=== PATIENT | female | born 1955 | race Caucasian/White ===

== ENCOUNTER 2019-07-31 15:53 | Emergency (ER) | payer BC, OTHER ==
--- OUTSIDE RECORDS SUMMARY | 2019-07-31 16:04 | XMS REPORT | Continuity of Care Document ---
:1955 External Reference #:[id number] Author Name Rivera Mccloud MD Address [address] [place] [address] Care Team Providers Name Role Phone Rivera Mccloud MD - Family Medicine Care Team Information Chief Underwriter [phone] Checo Hughes DPM - Overhead Line Worker Care Team Information Chief Underwriter [phone] [facility] Care Team Information Chief Underwriter Problems Active Problems Provider Date Benign essential hypertension Veronica Turcios MD Onset: 05/03/2006 Pure hypercholesterolemia Veronica Turcios MD Onset: 05/03/2006 Discoid lupus erythematosus of eyelid Rivera Mccloud MD Onset: 2011 Essential hypertension Rivera Mccloud MD Onset: 04/03/2015 Chest pain Mark Hinson MD Onset: 12/29/2017 Difficulty breathing Mark Hinson MD Onset: 12/29/2017 FH: Myocardial infarct in 1st degree male Mark Hinson MD Onset: 2017 relative <55 years Obesity Mark Hinson MD Onset: 12/29/2017 Body mass index 30+ - obesity Mark Hinson MD Onset: 12/29/2017 Aortic valve disorder Mark Hinson MD Onset: 02/09/2018 Aneurysm of thoracic aorta Mark Hinson MD Onset: 02/09/2018 Mitral valve disorder Mark Hinson MD Onset: 02/09/2018 Tricuspid valve disorder, non-rheumatic Mark Hinson MD Onset: 02/09/2018 Social History Type Date Description Comments Sex Unknown ETOH Use Rarely consumes alcohol Recreational Drug Use Denies Drug Use Tobacco Use Reviewed: 08/01/18 Patient has never smoked Smoking Status Reviewed: 02/21/19 Patient has never smoked Exercise Type/Frequency Does not exercise Allergies, Adverse Reactions, Alerts Description No Known Drug Allergies Medications Active Medications SIG Qnty Indications Ordering Date Provider Valacyclovir HCL 1 tablets by mouth 180tabs Nanava, 500mg two times daily Rivera Patel MD 9 Tablets Solifenacin Succinate take 1 tablet daily 90tabs Nanavati, 10mg Rivera Patel MD 9 Tablets Shingrix 0.[address] [facility], 50mcg/0.5ML intramuscular now Rivera Patel MD 8 Suspension Rec and 6 month later Lisinopril Take 1 Tablet Daily 90tabs I10 Nanavati, 5mg Tablets Rivera Patel MD 7 Zolpidem Tartrate 1 tab by mouth at 30tabs G47.00 Nanavati, 5mg Tablets bedtime Rivera Patel MD 6 Calcium 600 + D One PO qd OTC Nanava, Rivera Patel MD 2 [id number] Tablets Hydroxychloroquine One Tab By Mouth 180tabs [facility], Sulfate Twice A Day Rivera Patel MD 2 200mg Tablets Vitamin D-400 1 by mouth every Unknown 400Unit Tablets day 0 Vitamin E 1 by mouth every Unknown 400Unit Capsules day 0 Multivitamins 1 by mouth every Unknown Capsules day 0 Medications Administered in Office Medication SIG Qnty Indications Ordering Provider Date B-12 Injection Rivera Mccloud MD 10/16/2015 Injection B-12 Injection Location V1 Nurse 2 06/01/2015 Injection B-12 Injection Location V1 Nurse 2 05/04/2015 Injection B-12 Injection Rivera Mccloud MD 04/03/2015 Injection B-12 Injection Location V1 Nurse 2 03/02/2015 Injection B-12 Injection Rivera Mccloud MD 12/25/2014 Injection B-12 Injection Location V1 Nurse 2 11/27/2014 Injection B-12 Injection Location V1 Nurse 2 10/27/2014 Injection B-12 Injection Rivera Mccloud MD 09/25/2014 Injection B-12 Injection Location V1 Nurse 2 08/22/2014 Injection B-12 Injection Location V1 Nurse 2 07/24/2014 Injection B-12 Injection Rivera Mccloud MD 06/27/2014 Injection B-12 Injection Location V1 Nurse 2 05/26/2014 Injection B-12 Injection Location V1 Nurse 2 04/25/2014 Injection Immunizations CPT Code Status Date Vaccine Lot # [id number] Given 04/01/2019 Fluzone Highdose Age 65 And Over Preservative & Antibiotic Free 18730 Given 02/14/2019 Shingrix (Shingles) Zoster Vaccine HZV, Recombinant, Subunit, Adj 89497 Given 03/14/2018 Influenza Virus Vaccine,Quadrivalent,Split,Preserv Free, 0.5mL,Im [id number] Given 03/23/2017 Flu Vaccine NOS 38691 Given 03/09/2017 Influenza Virus Vaccine,Quadrivalent,Split,Preserv [id number] Free, 0.5mL,Im 60866 Given 04/18/2016 Influenza Virus Vaccine,Quadrivalent,Split,Preserv Free, 0.5mL,Im 07289 Given 03/02/2015 Influenza Virus Vaccine,Quadrivalent,Split,Preserv [id number] Free, 0.5mL,Im 97874 Given 04/25/2014 Zoster (Zostavax) [id number] 19876 Given 03/26/2014 Influenza Virus Vaccine,Quadrivalent,Split,Preserv [id number] Free, 0.5mL,Im Q2038 Given 03/06/2012 Fluzone Trivalent Immunization Q2037 Given 03/06/2012 Fluvirin Immunization [id number] 85464 Given 03/06/2012 Tdap (Adacel) Ages 7 And Above Only [id number] Vital Signs Date Vital Result Comment 06/10/2019 8:12am Body Temperature 97.1 F Weight 183.00 lb Heart Rate 86 /min BP Systolic 134 mmHg BP Diastolic 84 mmHg Respiratory Rate 16 /min Height 62 inches 5'2" O2 % BldC Oximetry 94 % BMI (Body Mass Index) 33.5 kg/m2 02/21/2019 8:52am Weight 186.00 lb Heart Rate 68 /min regular BP Systolic 126 mmHg BP Diastolic 78 mmHg Height 62 inches 5'2" BMI (Body Mass Index) 34.0 kg/m2 Results Test Acquired Date Facility Test Result H/L Range Note CBC with Auto Diff-fcmg 06/10/2019 [facility] 6.1 K/uL 4.1-11.0 1, 2 RBC 4.46 M/uL 4.00-5.40 3 Hemoglobin 13.9 gm/dL 12.0-16.0 4 Hematocrit 41.1 % 36.0-47.0 5 MCV 92.2 fL 80.0-95.0 6 MCH 31.1 pg 27.0-32.0 7 MCHC 33.8 g/dL 32.0-36.0 8 RDW 13.0 % 10.5-14.5 9 PLT Count 249 K/ul 150-400 10 MPV 8.2 FL 7.1-10.7 Neutrophil 67.5 % 35.0-75.0 11 Lymphocyte 20.5 % 16.0-52.0 12 Monocyte 9.2 % High 0.0-8.0 13 Eosinophil 2.2 % 0.0-5.0 Basophil 0.6 % 0.0-4.0 Abs Neutrophils 4.1 K/uL 1.8-7.7 14 Abs Lymphocytes 1.2 K/uL 1.2-4.8 15 Abs Monocytes 0.6 K/uL 0.0-0.8 16 Abs Eosinophils 0.1 K/uL 0.0-0.5 17 Abs Basophils 0.0 K/uL 0.0-0.2 18 Comprehensive Met Panel-[facility] 06/10/2019 [facility] Sodium 141 mmol/L 135- 146 19 Potassium 4.2 mmol/L 3.5-5.2 Chloride# 102 mmol/L 97-110 20 Carbon Dioxide 30 mmol/L 24-34 Calcium 9.6 mg/dL 8.5-10.5 21 Glucose 90 mg/dL 70-105 BUN 15 mg/dL 6-26 Creatinine 0.7 mg/dL 0.5-1.4 Total Protein 6.7 g/dL 6.0-8.0 Albumin 4.6 g/dL 3.6-4.9 Globulin 2.1 g/dL 2.0-3.5 A/G Ratio 2.2 Ratio 1.0-2.2 Total Bilirubin 0.7 mg/dL 0.1-1.3 Alkaline Phosphatase 84 U/L 24-140 Alt 15 U/L 3-42 Ast 17 U/L 8-42 Anion Gap 9 mmol/L 5-15 22 Female Egfr 91 >60 23 Male Egfr 100 >60 24 Lipid 06/10/2019 [facility] Cholesterol 186 mg/dL 50-199 Triglycerides 125 mg/dL 30-200 HDL 52 mg/dL 35-85 25 Chol/ HDL Ratio 3.6 ratio Low 3.7-5.6 VLDL 25 mg/dL 2-29 LDL (Calc) 109 mg/dL High 20-99 26 CBC with Auto Diff-fcmg 02/04/2019 [facility] WBC 5.8 K/uL 4.1-11.0 27 RBC 4.49 M/uL 4.00-5.40 Hemoglobin 13.8 gm/dL 12.0-16.0 Hematocrit 40.7 % 36.0-47.0 MCV 90.5 fL 80.0-97.0 MCH 30.8 pg 27.0-32.0 MCHC 34.0 g/dL 32.0-36.0 RDW 13.0 % 11.5-14.5 PLT Count 242 K/ul 140-400 MPV 8.5 FL 7.1-10.7 Neutrophil 68.0 % 35.0-75.0 Lymphocyte 20.2 % 16.0-52.0 Monocyte 9.5 % 2.0-10.0 Eosinophil 1.6 % 0.0-5.0 Basophil 0.7 % 0.0-4.0 Abs Neutrophils 3.9 K/uL 2.1-8.0 Abs Lymphocytes 1.2 K/uL 0.8-5.5 Abs Monocytes 0.6 K/uL 0.1-1.0 Abs Eosinophils 0.1 K/uL 0.0-0.5 Abs Basophils 0.0 K/uL 0.0-0.3 Comprehensive Met Panel-[facility] 02/04/2019 [facility] Sodium 143 mmol/L 135- 146 28 Potassium 4.3 mmol/L 3.5-5.2 Chloride# 106 mmol/L 97-110 29 Carbon Dioxide 25 mmol/L 24-34 Calcium 9.5 mg/dL 8.5-10.5 30 Glucose 84 mg/dL 70-105 BUN 13 mg/dL 6-26 Creatinine 0.7 mg/dL 0.5-1.4 Total Protein 6.7 g/dL 6.0-8.0 Albumin 4.2 g/dL 3.6-4.9 Globulin 2.5 g/dL 2.0-3.5 A/G Ratio 1.7 Ratio 1.0-2.2 Total Bilirubin 0.8 mg/dL 0.1-1.3 Alkaline Phosphatase 78 U/L 24-140 Alt 16 U/L 3-42 Ast 16 U/L 8-42 Anion Gap 12 mmol/L 5-15 31 Female Egfr 93 >60 32 Male Egfr 102 >60 33 Lipid 02/04/2019 [facility] Cholesterol 162 mg/dL 50-199 Triglycerides 105 mg/dL 30-200 HDL 47 mg/dL 35-85 34 Chol/ HDL Ratio 3.4 ratio Low 3.7-5.6 VLDL 21 mg/dL 2-29 LDL (Calc) 94 mg/dL 20-99 35 Laboratory test finding 02/04/2019 [facility] Vitamin D 25 Hydroxy 40 ng/mL 30-100 36 Vitamin B12 548 pg/mL 180-914 TSH 1.43 uIU/mL 0.35-4.94 1 This sample is drawn by: tk 2 Updated Reference Range 04/2019 3 Updated Reference Range 04/2019 4 Updated Reference Range 04/2019 5 Updated Reference Range 04/2019 6 Updated Reference Range 04/2019 7 Updated Reference Range 04/2019 8 Updated Reference range 04/2019 9 Updated Reference range 04/2019 10 Updated Reference Range 04/2019 11 Updated Reference Range 04/2019 12 Updated Reference Range 04/2019 13 Updated Reference Range 04/2019 14 Updated Reference Range 04/2019 15 Updated Reference Range 04/2019 16 Updated Reference Range 04/2019 17 Updated Reference Range 04/2019 18 Updated Reference Range 04/2019 19 Updated reference range on new analyzer 20 Updated reference range on new analyzer 21 Updated reference range 10-10-2018 22 Updated Reference Range 23 Concerning GFR Guidelines for Americans: Normal function or mild renal disease, if clinically at risk: >/= 60 mL/min Moderately decreased: 30-59 Severely decreased: 15-29 Renal failure: <15 There is reduced accuracy above 60ml/min/1.73 m squared, but the numeric value may be clinically useful in the near 60 range 24 Concerning GFR Guidelines: Normal function or mild renal disease, if clinically at risk: >/= 60 mL/min Moderately decreased: 30-59 Severely decreased: 15-29 Renal failure: <15 There is reduced accuracy above 60ml/min/1.73 m squared, but the numeric value may be clinically useful in the near 60 range Glomerular Filtration Rate (GFR) is estimated based on the CKD-EPI equation, which assumes a steady state for creatinine as recommended by the National Kidney Disease Education Program in conjunction with the National Institutes of Health and the National Kidney Foundation. Clinical conditions in which it may be necessary to measure GFR by using clearance methods include extremes of age and body size, severe malnutrition or obesity, diseases of skeletal muscle, paraplegia or quadriplegia, vegetarian diet, rapidly changing kidney function, and calculation of the dose of potentially toxic drugs that are excreted by the kidneys. 25 Per NCEP ATP III Guidelines: Results lower than 40 mg/dL are suggestive of increased risk for coronary artery disease. Results > or = to 60 mg/dL are considered a negative risk factor. 26 Per NCEP ATP III Guidelines: Normal Population <130 Patients with medical conditions: CHD/DM Optimal: <100 Borderline high: 130-159 High: 160-189 Very high: >189 27 This sample is drawn by:tg 28 Updated reference range on new analyzer 29 Updated reference range on new analyzer 30 Updated reference range 10-10-2018 31 Updated Reference Range 32 Concerning GFR Guidelines for Americans: Normal function or mild renal disease, if clinically at risk: >/= 60 mL/min Moderately decreased: 30-59 Severely decreased: 15-29 Renal failure: <15 There is reduced accuracy above 60ml/min/1.73 m squared, but the numeric value may be clinically useful in the near 60 range 33 Concerning GFR Guidelines: Normal function or mild renal disease, if clinically at risk: >/= 60 mL/min Moderately decreased: 30-59 Severely decreased: 15-29 Renal failure: <15 There is reduced accuracy above 60ml/min/1.73 m squared, but the numeric value may be clinically useful in the near 60 range Glomerular Filtration Rate (GFR) is estimated based on the CKD-EPI equation, which assumes a steady state for creatinine as recommended by the National Kidney Disease Education Program in conjunction with the National Institutes of Health and the National Kidney Foundation. Clinical conditions in which it may be necessary to measure GFR by using clearance methods include extremes of age and body size, severe malnutrition or obesity, diseases of skeletal muscle, paraplegia or quadriplegia, vegetarian diet, rapidly changing kidney function, and calculation of the dose of potentially toxic drugs that are excreted by the kidneys. 34 Per NCEP ATP III Guidelines: Results lower than 40 mg/dL are suggestive of increased risk for coronary artery disease. Results > or = to 60 mg/dL are considered a negative risk factor. 35 Per NCEP ATP III Guidelines: Normal Population <130 Patients with medical conditions: CHD/DM Optimal: <100 Borderline high: 130-159 High: 160-189 Very high: >189 36 Clinical Guidelines for recommended serum 25(OH)Vitamin D Deficient at less than 20 ng/mL Insufficient at 20 to <30 ng/mL Sufficient at 30-100 ng/mL Toxicity at greater than 100 ng/mL Procedures Date Code Description Status 04/03/2019 [id number] Mammogram Completed 04/01/2019 [id number] Mammogram Completed 02/21/2019 [id number] Electrocardiogram Complete Completed 02/14/2019 16481 ECHO Transthoracis 2D W Spectral Doppler Completed 03/23/2018 [id number] Mammogram Completed 03/21/2017 [id number] Mammogram Completed 10/12/2016 [id number] Colonoscopy Completed 03/16/2016 [id number] Mammogram Completed 02/03/2015 [id number] Mammogram Completed 01/31/2014 [id number] Mammogram Completed 09/03/2013 [id number] Colonoscopy Completed 02/23/2013 [id number] Mammogram Completed 09/04/2012 [id number] Bone Mineral Density Test Completed Medical Devices Description No Information Available Encounters Type Date Location Provider Dx Diagnosis Office Visit 02/21/2019 [facility] Mark Hinson, I35.1 Nonrheumatic aortic 8:45a Cardiology MD (valve) insufficiency I34.0 Nonrheumatic mitral (valve) insufficiency I36.1 Nonrheumatic tricuspid (valve) insufficiency I71.2 Thoracic aortic aneurysm, without rupture I10 Essential (primary) hypertension Z82.49 Family hx of ischem heart dis and oth dis of the circ sys E66.9 Obesity, unspecified Z68.34 Body mass index (BMI) 34.0-34.9, adult Office Visit 02/04/2019 8:30a [facility] Rivera Mccloud I10 Essential Mildred Patel MD (primary) hypertension E78.5 Hyperlipidemia, unspecified M15.0 Primary generalized (osteo)arthritis R53.83 Other fatigue M54.9 Dorsalgia, unspecified M54.2 Cervicalgia Z13.31 Encounter for screening for depression M25.562 Pain in LEFT knee G47.00 Insomnia, unspecified G47.30 Sleep apnea, unspecified E53.9 Vitamin B deficiency, unspecified E55.9 Vitamin D deficiency, unspecified Z00.00 Encntr for general adult medical exam w/o abnormal findings E66.09 Other obesity due to excess calories Z68.34 Body mass index (BMI) 34.0-34.9, adult Assessments Date Code Description Provider 06/10/2019 I10 Essential (primary) hypertension Rivera Mccloud MD 06/10/2019 E78.5 Hyperlipidemia, unspecified Rivera Mccloud MD 06/10/2019 R73.01 Impaired fasting glucose Rivera Mccloud MD 06/10/2019 E53.9 Vitamin B deficiency, unspecified Rivera Mccloud MD 06/10/2019 M15.0 Primary generalized (osteo)arthritis Rivera Mccloud MD 06/10/2019 M54.9 Dorsalgia, unspecified Rivera Mccloud MD 06/10/2019 M25.562 Pain in LEFT knee Rivera Mccloud MD 06/10/2019 G47.00 Insomnia, unspecified Rivera Mccloud MD 06/10/2019 G47.30 Sleep apnea, unspecified Rivera Mccloud MD 06/10/2019 E55.9 Vitamin D deficiency, cadeified Rivera Mccloud MD 06/10/2019 E66.09 Other obesity due to excess calories Rivera Mccloud MD 06/10/2019 Z68.33 Body mass index (BMI) 33.0-33.9, adult Rivera Mccloud MD 06/10/2019 I10 Essential (primary) hypertension [facility] 06/10/2019 E78.5 [facility], [facility] 06/10/2019 R73.01 Impaired fasting glucose [facility] 02/21/2019 I35.1 Nonrheumatic aortic (valve) insufficiency Mark Hinson MD 02/21/2019 I34.0 Nonrheumatic mitral (valve) insufficiency Mark Hinson MD 02/21/2019 I36.1 Nonrheumatic tricuspid (valve) Mark Hinson MD insufficiency 02/21/2019 I71.2 Thoracic aortic aneurysm, without rupture Mark Hinson MD 02/21/2019 I10 Essential (primary) hypertension Mark Hinson MD 02/21/2019 Z82.49 Family history of ischemic heart disease Mark Hinson MD and other diseases of the circulatory system 02/21/2019 E66.9 Obesity, unspecified Mark Hinson MD 02/21/2019 Z68.34 Body mass index (BMI) 34.0-34.9, adult Mark Hinson MD 02/14/2019 I10 Essential (primary) hypertension [facility] - Loc A2 02/14/2019 E78.5 Hyperlipidemia, unspecified [facility] - Loc A2 02/14/2019 R07.89 Other chest pain E[facility] - Loc A2 02/14/2019 R00.2 Palpitations ECHO - Loc A2 02/04/2019 I10 Essential (primary) hypertension Rivera Mccloud MD 02/04/2019 E78.5 Hyperlipidemia, unspecified Rivera Mccloud MD 02/04/2019 M15.0 Primary generalized (osteo)arthritis Rivera Mccloud MD 02/04/2019 R53.83 Other fatigue Rivera Mccloud MD 02/04/2019 M54.9 Dorsalgia, unspecified Rivera Mccloud MD 02/04/2019 M54.2 Cervicalgia Rivera Mccloud MD 02/04/2019 Z13.31 Encounter for screening for depression Rivera Mccloud MD 02/04/2019 M25.562 Pain in LEFT knee Rivera Mccloud MD 02/04/2019 G47.00 Insomnia, Rivera Bland MD 02/04/2019 G47.30 Sleep apnea, cadeified Rivera Mccloud MD 02/04/2019 E53.9 Vitamin B deficiency, unspecified Rivera Mccloud MD 02/04/2019 E55.9 Vitamin D deficiency, unspecified Rivera Mccloud MD 02/04/2019 Z00.00 Encounter for general adult medical Rivera Mccloud MD examination without abnormal findings 02/04/2019 E66.09 Other obesity due to excess calories Rivera Mccloud MD 02/04/2019 Z68.34 Body mass index (BMI) 34.0-34.9, adult Rivera Mccloud MD 02/04/2019 I10 Essential (primary) hypertension [facility] 02/04/2019 E78.5 Hyperlipidemia, unspecified [facility] 02/04/2019 M15.0 Primary generalized (osteo)arthritis [facility] 02/04/2019 E53.9 Vitamin B deficiency, unspecified [facility] 02/04/2019 E55.9 Vitamin D deficiency, unspecified [facility] Plan of Treatment Future Appointment(s):09/12/2019 8:00 am - Rivera Mccloud MD at [facility]02/21/2020 9:00 am - Mark Hinson MD at [facility]02/21/2020 8:00 am - ECHO - Loc A2 at [facility]25/30/2019 - Rivera Mccloud MDI10 Essential (primary) hypertensionComments:Today, her BP is 134/84. She was advised to continue with her current line of therapies. She will benefit from maintaining a low sodium diet. We will continue to monitor.E78.5 Hyperlipidemia, unspecifiedComments:Labs reviewed with the patient in detail. She was encouraged to maintain a low cholesterol diet. We will continue to monitor.R73.01 Impaired fasting glucoseComments:The patient was advised to reduce the amount of carbohydrates in diet and to avoid concentrated sweets. We will monitor the patient's blood sugar on a periodic basis.E53.9 Vitamin B deficiency, unspecifiedComments:Will continue current supplements. Will continue to monitor patient's blood work.M15.0 Primary generalized (osteo)arthritisComments:Patient was advised to use OTC medication PRN for pain management and will continue to monitor.M54.9 Dorsalgia, unspecifiedComments:She will continue using lidocaine patches for pain control. She recently tried an injection withoutmuch relief. We will continue to monitor the patient.M25.562 Pain in LEFT kneeComments:Patient was advised to continue taking Calcium+Vitamin D supplements. She was encouraged to take OTCmedication PRN for pain management. Will continue to monitor.G47.00 Insomnia , unspecifiedComments:She was advised to continue with current medication, which is helping at present. We will continue to monitor.G47.30 Sleep apnea, unspecifiedComments:Stable at present, will continue to monitor.E55.9 Vitamin D deficiency, unspecifiedComments:Will continue supplements and we will need to check blood work periodically. Improvement in symptomsseen.E66.09 Other obesity due to excess caloriesComments:The patient had lost around 3lbs of body weight since the previous visit and she currently weighs around 183lbs. A detailed discussion was had with the patient regarding her body weight and BMI. She was made aware about the health hazards of obesity including diabetes, hypertension , cardiac diseases, and other various risk factors. She was advised to maintain a healthy, low-calorie diet and a regular exercise regimen which will help her lose weight. Greater than 10 minutes spent on counseling.Z68.33 Body mass index (BMI) 33.0-33.9, adultComments:Her BMI is at 33.5. He was strongly encouraged to lose weight w/ low-calorie diet and exercises. We will continue to monitor his weight and BMI periodically.AllFollow up:The patient will follow- up with me in three months with CBC, CMP, and Lipids one week prior to appointment. Functional Status Description No Information Available Mental Status Description No Information Available Referrals Description No Information Available
[2019-07-31 16:07] VITALS: BP 109/69
--- NOTE | 2019-07-31 16:57 | UC ---
Back Pain HPI - HPI Summary HPI Summary: Patient is a 63yo female presenting with for "pain of tailbone" after she fell on ice this morning. States she also hit the back of her head but denies pain, LOC, vision changes, dizziness/lightheadedness, and n/v. Aditya taking blood thinners. States her "lower back and tailbone" have a sharp throbbing pain. States it hurts worse to sit. Denies difficulty ambulating. Denies numbness and tingling. Unsure of any bruising or swelling. Denies bowel/ bladder incontinence. Took a leftover hydrocodone at home before coming in. - History of Current Complaint Chief Complaint: UCBackPain Stated Complaint: SP FALL-HEAD INJURY, LOWER BACK PAIN Hx Obtained From: Patient Pain Intensity: 8 Pain Scale Used: 0-10 Numeric - Allergies/Home Medications Allergies/Adverse Reactions: Allergies Allergy/AdvReac Type Severity Reaction Status Date / Time No Known Allergies Allergy Verified 07/31/19 16:08 Home Medications: Home Medications Hydroxychloroquine TAB* [Plaquenil TAB*] 200 mg DAILY 02/23/14 [History Confirmed 07/31/19] Calcium Carbonate/Vitamin D3 [Calcium 600+D Softgel] 1 each PO DAILY 07/31/19 [ History Confirmed 07/31/19] Cholecalciferol TAB* [Vitamin D TAB*] 400 unit PO DAILY 07/31/19 [History Confirmed 07/31/19] HYDROcodone/ACETAMIN 5-325 MG* [Ida 5-325 TAB*] 1 tab PO Q6H PRN 07/31/19 [ History Confirmed 07/31/19] Lisinopril TAB* [Prinivil TAB*] 5 mg PO DAILY 07/31/19 [History Confirmed ] Solifenacin Succinate [Vesicare] 5 mg PO DAILY 07/31/19 [History Confirmed 07/31] ValACYclovir (*) [Valtrex 500 mg (*)] 500 mg PO DAILY 07/31/19 [History Confirmed 07/31/19] Vitamin E CAP* 400 unit PO DAILY 07/31/19 [History Confirmed 07/31/19] Zolpidem TAB* [Ambien TAB*] 5 mg PO BEDTIME PRN 07/31/19 [History Confirmed 02/ 19/20] PMH/Surg Hx/FS Hx/Imm Hx - Surgical History Surgical History: Yes Surgery Procedure, Year, and Place: hysterectomy, breast reduction - Social History Alcohol Use: None Substance Use Type: None Smoking Status (MU): Never Smoked Tobacco Review of Systems All Other Systems Reviewed And Are Negative: Yes Constitutional: Positive: Negative Skin: Positive: Negative Respiratory: Positive: Negative Cardiovascular: Positive: Negative Gastrointestinal: Positive: Negative. Negative: Vomiting, Nausea Motor: Positive: Negative Neurovascular: Positive: Negative Musculoskeletal: Positive: Arthralgia - low back pain. Negative: Decreased ROM , Edema Neurological/Mental Status: Positive: Negative. Negative: Paresthesia, Numbness Physical Exam - Summary Physical Exam Summary: Vital Signs Reviewed: Yes A+Ox3, no distress Eyes: Conjunctiva Clear, PERRLA, EOM intact and full ENT: Hearing grossly normal Neck: Positive: Supple, no tenderness Head: no tenderness to palpation Respiratory: Positive: No respiratory distress, No accessory muscle use + CTA throughout no w/r Cardiovascular: RRR nl s1, s2 no m/r Musculoskeletal Exam: CABRAL x 4 without difficulty, +TTP of lumbarsacral spine, no edema, no eythema or ecchymosis, ROM intact, normal gait observed, sensation grossly intact Neurological: Positive: Alert, CN II-XII intact, negative romberg, negative finger to nose, negative heel to wilkerson Psychological: Positive: age appropriate behavior Skin: Positive: no rash, no ecchymosis Vital Signs: Initial Vital Signs Temp 97.7 F 07/31/19 16:04 Pulse 77 07/31/19 16:04 Resp 17 07/31/19 16:04 BP 109/69 07/31/19 16:04 Pulse Ox 96 07/31/19 16:04 Diagnostics - Radiology lumbarsacral Radiology Interpretation Completed By: Radiologist Summary of Radiographic Findings: IMPRESSION: 1. Osteopenia without compression deformity. 2. Multilevel spondylosis. 3. Postoperative changes. Back Pain Course/Dx - Course Course Of Treatment: Patient neuro exam WNL with no LOC, vision changes, motor changes, n/v, or use of blood thinners. Radiographs negative for fracture. Discussed this with patient and instructed to continue rest and ice. Instructed to follow up with pcp or ortho if pain symptoms persist. Instructed to go to ED with any new or worsening symptoms. Patient voiced understanding and agreed with treatment plan. - Differential Dx/Diagnosis Differential Diagnosis/HQI/PQRI: Fracture, Herniated Disc, Strain, Sprain Provider Diagnosis: Acute low back pain due to trauma Discharge ED - Sign-Out/Discharge Documenting (check all that apply): Patient Departure All imaging exams completed and their final reports reviewed: Yes - Discharge Plan Condition: Stable Disposition: HOME Patient Education Materials: Contusion in Adults (ED) Referrals: Rivera Mccloud MD [Primary Care Provider] - If Needed Additional Instructions: As discussed, your xrays did not show any fractures. Rest and apply ice to help alleviate pain. You may also take ibuprofen and/or tylenol as directed for pain relief. Refrain from strenuous physical activity until pain has resolved. Follow up with your primary care provider or the orthopedic referral listed below if pain does not improve within 1-2 weeks. - Billing Disposition and Condition Condition: STABLE Disposition: Home
== END 2019-07-31 18:13 | disposition home or self-care (01) ==
LOC: UCCORT 15:53
DX: M54.5 Low back pain (principal); M85.88 Other specified disorders of bone density and structure, other site; M47.897 Other spondylosis, lumbosacral region; M43.8X7 Other specified deforming dorsopathies, lumbosacral region; Z98.890 Other specified postprocedural states; W00.0XXA Fall on same level due to ice and snow, initial encounter; Y92.9 Unspecified place or not applicable
CPT/HCPCS: 72110; 99201; G0463